=== PATIENT | male | born 1965 | race Caucasian/White ===

== ENCOUNTER → 2018-04-02 | Outpatient (CLI) | payer BC ==
--- NOTE | 2018-04-02 07:38 | US ---
EXAMINATION TYPE: US liver DATE OF EXAM: 04/02/2018 COMPARISON: NONE CLINICAL HISTORY: R74.8 Elevated Liver Enzymes. Abnormal labs. NPO. EXAM MEASUREMENTS: Liver Length: 20.7 cm Gallbladder Wall: 0.2 cm CBD: 0.4 cm CHD: 0.4 cm Right Kidney: 12.9 x 6.3 x 5.3 cm Pancreas: Tail obscured by overlying bowel gas Liver: wnl Gallbladder: wnl Evidence for sonographic Brizuela's sign: neg CBD: wnl CHD: wnl Right Kidney: wnl IMPRESSION: No distinct abnormality appreciated.
== END | disposition home or self-care (01) ==
LOC: RADUSWWP 06:57
PROVIDERS: ATTEND Family Medicine
DX: R74.8 Abnormal levels of other serum enzymes (principal)
CPT/HCPCS: 76705

== ENCOUNTER → 2018-04-25 | Outpatient (CLI) | payer BC ==
--- NOTE | 2018-04-25 15:29 | US ---
EXAMINATION TYPE: US carotid duplex BILAT DATE OF EXAM: 04/25/2018 COMPARISON: NONE CLINICAL HISTORY: R09.89 Carotid Bruit. Pt recently diagnosed with high BP EXAM MEASUREMENTS: RIGHT: Peak Systolic Velocity (PSV) cm/sec ----- Right CCA: 82.2 ----- Right ICA: 116.1 ----- Right ECA: 216.3 ICA/CCA ratio: 1.4 RIGHT: End Diastole cm/sec ----- Right CCA: 34.8 ----- Right ICA: 48.7 ----- Right ECA: 54.6 LEFT: Peak Systolic Velocity (PSV) cm/sec ----- Left CCA: 99.3 ----- Left ICA: 122.6 ----- Left ECA: 195.3 ICA/CCA ratio: 1.2 LEFT: End Diastole cm/sec ----- Left CCA: 38.7 ----- Left ICA: 56.5 ----- Left ECA: 41.1 VERTEBRALS (direction of flow): Right Vertebral: Antegrade Left Vertebral: Antegrade Rhythm: Normal IMPRESSION: Elevated velocities bilateral ECA's, otherwise no significant stenosis seen. Criteria for Assigning % of Stenosis / Diameter reduction (Estimation based on the indirect measurements of the internal carotid artery velocities (ICA PSV). 1. Normal (no stenosis)=ICA PSV < 125 cm/s: ratio < 2.0: ICA EDV<40 cm/s. 2. Less than 50% stenosis=ICA PSV < 125 cm/s: ratio < 2.0: ICA EDV<40 cm/s. 3. 50 to 69% stenosis=ICA PSV of 125 to 230 cm/s: ration 2.0 ? 4.0: ICA EDV 40-100 cm/s. 4. Greater than 70% stenosis to near occlusion= ICA PSV > 230 cm/s: ratio > 4.0: ICA EDV > 100 cm/s. 5. Near occlusion= ICA PSV velocities may be low or undetectable: variable ratio and ICA EDV. 6. Total occlusion=unable to detect flow.
== END | disposition home or self-care (01) ==
LOC: RADUSWWP 14:56
PROVIDERS: ATTEND Family Medicine
DX: R93.89 Abnormal findings on diagnostic imaging of other specified body structures (principal)
CPT/HCPCS: 93880

== ENCOUNTER 2018-06-13 09:00 | Day surgery (SDC) | payer BC, OTHER ==
[2018-06-11 13:02] VITALS: BMI 31.2
[~2018-06-13 09:00] MED LIST: LACTATED RINGERS 1,000 ML IV SCH
[2018-06-13 09:17] VITALS: RESP 16; TEMP 98.6
[2018-06-13] MEDS ORDERED: LIDOCAINE 1% 20 ML VIAL (10MG/ML) FOR IV START INTRADERMA ONE (09:25)
[2018-06-13] MEDS ORDERED: PROPOFOL 10 MG/ML 20 ML VIAL IV ONE (10:11)
[2018-06-13] MEDS ORDERED: LIDOCAINE 1% INJ 10MG/ML (20 ML MDV) ONE (10:11)
--- NOTE | 2018-06-13 10:30 | P.PCN ---
Date of Procedure: 06/13/18 Procedure(s) Performed: BRIEF HISTORY: Patient is a 52-year-old pleasant white male, scheduled for an elective colonoscopy as a part of screening for colorectal neoplasia. PROCEDURE PERFORMED: Colonoscopy. With snare polypectomy PREOPERATIVE DIAGNOSIS: Screening for colon cancer. IV sedation per Anesthesia. PROCEDURE: After informed consent was obtained, the patient, was brought into the endoscopy unit. IV sedation was administered by Anesthesia under continuous monitoring. Digital rectal examination was normal. Initially the Olympus CF- 160 flexible video colonoscope was then inserted in the rectum, gradually advanced into the cecum without any difficulty. Careful examination was performed as the scope was gradually being withdrawn. Ileocecal valve and the appendiceal orifice were visualized and appeared normal. Prep was excellent. Mucosa of the cecum, appeared normal. In the ascending colon there was a 5 mm sessile polyp removed by snare polypectomy. Rest of the ascending colon, transverse colon, descending colon, sigmoid colon, and rectum appeared normal. There was another 5 mm sessile colon and sigmoid colon that was removed by snare polypectomy Retroflexion was performed in the rectum and no lesions were seen. The patient tolerated the procedure well. IMPRESSION: 5 mm sigmoid colon polyp status post polypectomy 5 mm sessile ascending colon polyp serous was snare polypectomy RECOMMENDATIONS: Findings of this examination were discussed with the patient as well as his family. He was advised to follow with the biopsy results. The biopsy shows adenoma, he can have a repeat colonoscopy in 5 years.
[2018-06-13 10:49] VITALS: BP 124/74; PULSE 70
== END 2018-06-13 11:21 | disposition home or self-care (01) ==
LOC: ORWHC2ENDO 09:00
PROVIDERS: ATTEND Internal Medicine Gastroenterology
DX: D12.2 Benign neoplasm of ascending colon (principal); K63.5 Polyp of colon; I10 Essential (primary) hypertension; K21.9 Gastro-esophageal reflux disease without esophagitis; F17.200 Nicotine dependence, unspecified, uncomplicated; Z79.82 Long term (current) use of aspirin; Z79.899 Other long term (current) drug therapy
CPT/HCPCS: 88305; 45385; J2001; J2704

== ENCOUNTER → 2020-02-29 | Outpatient (CLI) | payer OTHER ==
--- NOTE | 2020-02-29 15:31 | US ---
EXAMINATION TYPE: US carotid duplex BILAT DATE OF EXAM: 02/29/2020 COMPARISON: US CLINICAL HISTORY: R09.89 Carotid bruit. Bruit EXAM MEASUREMENTS: RIGHT: Peak Systolic Velocity (PSV) cm/sec ----- Right CCA: 114 ----- Right ICA: 117 ----- Right ECA: 273 ICA/CCA ratio: 1.0 RIGHT: End Diastole cm/sec ----- Right CCA: 36.4 ----- Right ICA: 41.0 ----- Right ECA: 42.5 LEFT: Peak Systolic Velocity (PSV) cm/sec ----- Left CCA: 157 ----- Left ICA: 144 ----- Left ECA: 315 ICA/CCA ratio: 0.9 LEFT: End Diastole cm/sec ----- Left CCA: 41.8 ----- Left ICA: 54.1 ----- Left ECA: 63.9 VERTEBRALS (direction of flow): Right Vertebral: Antegrade Left Vertebral: Antegrade Rhythm: Normal Elevated velocities bilateral ECA's, slightly elevated velocities left carotid system IMPRESSION: There is no evidence for hemodynamically significant stenosis. Criteria for Assigning % of Stenosis / Diameter reduction (Estimation based on the indirect measurements of the internal carotid artery velocities (ICA PSV). 1. Normal (no stenosis)=ICA PSV < 125 cm/s: ratio < 2.0: ICA EDV<40 cm/s. 2. Less than 50% stenosis=ICA PSV < 125 cm/s: ratio < 2.0: ICA EDV<40 cm/s. 3. 50 to 69% stenosis=ICA PSV of 125 to 230 cm/s: ration 2.0 ? 4.0: ICA EDV 40-100 cm/s. 4. Greater than 70% stenosis to near occlusion= ICA PSV > 230 cm/s: ratio > 4.0: ICA EDV > 100 cm/s. 5. Near occlusion= ICA PSV velocities may be low or undetectable: variable ratio and ICA EDV. 6. Total occlusion=unable to detect flow.
== END | disposition home or self-care (01) ==
LOC: RADUSWWP 15:00
PROVIDERS: ATTEND Family Medicine
DX: R09.89 Other specified symptoms and signs involving the circulatory and respiratory systems (principal)
CPT/HCPCS: 93880

== ENCOUNTER → 2024-03-20 | Outpatient (CLI) | payer OTHER ==
--- NOTE | 2024-03-20 17:04 | US ---
EXAMINATION TYPE: US carotid duplex BILAT DATE OF EXAM: 03/20/2024 COMPARISON: Multiple, most recent 09/28/2022 CLINICAL INDICATION: Male, 58 years old with history of I65.29 OCCLUSION AND STENOSIS OF CAROTID JIA RY; Follow up TECHNIQUE: Grayscale, color Doppler and spectral Doppler evaluation of the bilateral carotid systems and vertebral arteries. Indirect Doppler criteria was utilized. FINDINGS: EXAM MEASUREMENTS: RIGHT: Peak Systolic Velocity (PSV) cm/sec ----- Right CCA: 91 ----- Right ICA: 106 ----- Right ECA: 256 ICA/CCA ratio: 1.2 RIGHT: End Diastole cm/sec ----- Right CCA: 26 ----- Right ICA: 29 ----- Right ECA: 31 LEFT: Peak Systolic Velocity (PSV) cm/sec ----- Left CCA: 100 ----- Left ICA: 106 ----- Left ECA: 218 ICA/CCA ratio: 1.1 LEFT: End Diastole cm/sec ----- Left CCA: 23 ----- Left ICA: 32 ----- Left ECA: 36 VERTEBRALS (direction of flow): Right Vertebral: Antegrade Left Vertebral: Antegrade Rhythm: Normal RECORDS TECH NOTES: Intimal thickening seen Right CCA, elevated velocities within bilateral ECAs, plaq ue seen within bilateral CCA bulbs extending into ICAs IMPRESSION: Moderate atherosclerotic plaque without hemodynamically significant stenosis of the bilateral interna l carotid arteries. There is [id number] stenosis at the origins of the bilateral external carot id artery secondary to calcified plaque. Criteria for Assigning % of Stenosis / Diameter reduction (Estimation based on the indirect measurements of the internal carotid artery velocities (ICA PSV). 1. Normal (no stenosis)=ICA PSV < 125 cm/s: ratio < 2.0: ICA EDV<40 cm/s. 2. Less than 50% stenosis=ICA PSV < 125 cm/s: ratio < 2.0: ICA EDV<40 cm/s. 3. 50 to 69% stenosis=ICA PSV of 125 to 230 cm/s: ration 2.0 ? 4.0: ICA EDV 40-100 cm/s. 4. Greater than 70% stenosis to near occlusion= ICA PSV > 230 cm/s: ratio > 4.0: ICA EDV > 100 cm/s. 5. Near occlusion= ICA PSV velocities may be low or undetectable: variable ratio and ICA EDV. 6. Total occlusion=unable to detect flow. [facility], , 03/20/2024 5:02 PM
== END | disposition home or self-care (01) ==
LOC: RADUSWWP 16:31
PROVIDERS: ATTEND Family Medicine
CPT/HCPCS: 93880

== ENCOUNTER 2024-07-21 07:02 | Day surgery (SDC) | payer OTHER ==
[2024-07-21] MEDS: IV FLUID CONTINUATION 1,000 ML IV ONE (07:15)
[2024-07-21 07:29] VITALS: RESP 16; TEMP 99.1
[2024-07-21] MEDS: LACTATED RINGERS 1,000 ML IV SCH (07:32)
[2024-07-21] MEDS ORDERED: LIDOCAINE 1% INJ 10MG/ML (20 ML MDV) ONE (07:57)
[2024-07-21] MEDS ORDERED: PROPOFOL 10 MG/ML 20 ML VIAL IV ONE (07:57)
--- NOTE | 2024-07-21 08:26 | P.PCN ---
Date of Procedure: 07/21/24 Procedure(s) Performed: Brief history: Patient is a pleasant 58-year-old white male scheduled for an elective upper endoscopy as well as colonoscopy as a part of evaluation of intermittent dysphagia and a dyne aphasia for the last 1 month duration and screening for prior history of colon polyps.. He also has prior history of colon polyps and last colonoscopy was 6 years ago. Procedure performed: Esophagogastroduodenoscopy with biopsy Colonoscopy Preoperative diagnosis: Dysphagia and odynophagia 1 month duration Screening for history of colon polyps Anesthesia: MAC Procedure: After informed consent was obtained from the patient was brought into the endoscopy unit and IV sedation was administered by anesthesia under continuous monitoring. Initially upper endoscopy was done. The Olympus GF 160 video endoscope was inserted inserted into the mouth and esophagus intubated without any difficulty and was gradually advanced into the stomach and duodenum and carefully examined. The bulb and second part of the duodenum appeared normal. The scope was then withdrawn into the stomach adequately insufflated with air and upon careful examination the antrum and body, cardia and fundus appeared normal. The scope was then withdrawn into the esophagus. The GE junction was located at 43 cm to the incisors. 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 Multiple biopsies were done from the ulcerated mass. The rest of the esophagus appeared normal and the patient tolerated the procedure well. At this time the patient continued to remain sedation. Initial digital rectal examination was normal. Olympus CF 160 video colonoscope was then inserted into the rectum and gradually advanced to the cecum without any difficulty. Careful examination was performed as the scope was gradually being withdrawn. The prep was excellent. The cecum, ascending colon, transverse colon, descending colon, sigmoid colon and rectum appeared normal. Retroflexion was performed in the rectum and small internal hemorrhoids were noted. Patient tolerated the procedure well. Impression: 1. 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 Colonoscopy revealed small internal hemorrhoids but no evidence of colorectal neoplasia Recommendations: Findings of this examination were discussed with the patient as well as his family. He was advised to follow-up with the biopsy results. He will be seen in the office early next week.
[2024-07-21 08:54] VITALS: BP 104/67; PULSE 64
== END 2024-07-21 09:11 | disposition home or self-care (01) ==
LOC: ORWHC2ENDO 07:02
PROVIDERS: ATTEND Internal Medicine Gastroenterology
DX: Z12.11 Encounter for screening for malignant neoplasm of colon (principal); K21.9 Gastro-esophageal reflux disease without esophagitis; K64.8 Other hemorrhoids; R13.10 Dysphagia, unspecified; I10 Essential (primary) hypertension; E78.5 Hyperlipidemia, unspecified; F17.210 Nicotine dependence, cigarettes, uncomplicated; M54.50 Low back pain, unspecified; F10.99 Alcohol use, unspecified with unspecified alcohol-induced disorder; Z86.0100 Personal history of colon polyps, unspecified; Z79.899 Other long term (current) drug therapy
CPT/HCPCS: 45378; 43239; J2003; J2704; 88305; 88341; 88342